=== PATIENT | male | born 1980 | race Caucasian/White ===

== ENCOUNTER 2018-12-08 23:04 | Inpatient (IN) | payer BC, SELFPAY ==
[~2018-12-08] VITALS: Ht 180.3 cm; Wt 73.6 kg
[2018-12-09 00:13] LABS: HEMATOCRIT 45.8 % (42.0-52.0); HEMOGLOBIN 15.9 g/dl (13.5-17.5); MEAN CORPUSCULAR HEMOGLOBIN 33.1 pg (27.0-33.0); MEAN CORPUSCULAR HGB CONC 34.7 g/dl (32.0-36.5); MEAN CORPUSCULAR VOLUME 95.4 fl (80.0-96.0); PLATELET COUNT, AUTOMATED 271 10^3/uL (150-450); WHITE BLOOD COUNT 9.3 10^3/uL (4.0-10.0)
[2018-12-09 00:18] LABS: AMPHETAMINES LEVEL URINE NEGATIVE (NEGATIVE); BARBITURATES URINE NEGATIVE (NEGATIVE); BENZODIAZEPINES URINE NEGATIVE (NEGATIVE); CANNABINOIDS URINE NEGATIVE (NEGATIVE); COCAINE METABOLITE URINE NEGATIVE (NEGATIVE); METHADONE URINE NEGATIVE (NEGATIVE); OPIATES URINE NEGATIVE (NEGATIVE); PHENCYCLIDINE URINE NEGATIVE (NEGATIVE)
[2018-12-09 00:42] LABS: ACETAMINOPHEN LEVEL < 2.0 UG/ML (10.0-30.0); ALBUMIN 4.2 GM/DL (3.2-5.2); ALT/SGPT 24 U/L (12-78); BILIRUBIN,DIRECT 0.3 MG/DL (0.0-0.2); BILIRUBIN,TOTAL 1.5 MG/DL (0.2-1.0); BLOOD UREA NITROGEN 13 MG/DL (7-18); CALCIUM LEVEL 8.7 MG/DL (8.5-10.1); CARBON DIOXIDE LEVEL 25 MEQ/L (21-32); CHLORIDE LEVEL 108 MEQ/L (98-107); CREATININE FOR GFR 1.11 MG/DL (0.70-1.30); ETHYL ALCOHOL (ETHANOL) 0.141 % (0.000-0.010); GLOMERULAR FILTRATION RATE > 60.0 (>60); GLUCOSE, FASTING 99 MG/DL (70-100); POTASSIUM SERUM 4.1 MEQ/L (3.5-5.1); SALICYLATE LEVEL < 1.7 MG/DL (5.0-30.0); SODIUM LEVEL 141 MEQ/L (136-145); THYROID STIMULATING HORMONE 0.674 uIU/ML (0.358-3.740); TOTAL PROTEIN 7.2 GM/DL (6.4-8.2)
--- NOTE | 2018-12-09 05:45 | ECGEPIP ---
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
[2018-12-09] MEDS ORDERED: MOM 30ML SUSPENSION UDC PO PRN (15:45)
[2018-12-09] MEDS ORDERED: MAALOX 30 ML SUSP *UDC PO PRN (15:45)
[2018-12-09] MEDS ORDERED: ACETAMINOPHEN TAB 650MG DOSE (2X325MG) PO PRN (15:45)
[2018-12-09] MEDS ORDERED: traZODone 50 MG TAB PO PRN (15:45)
[2018-12-09 16:27] VITALS: BP 134/64
[2018-12-10 06:59] VITALS: BP 132/63
--- NOTE | 2018-12-10 12:17 | MHHPEPDOC ---
General Date Of Admission: Dec 09, 2018 Legal Status: 9.39 Chief Complaint "I"m not sure what I was thinking." History of Present Illness HISTORY OF THE PRESENT ILLNESS: Patient is a 38 -year-old , male, with no previous psych history who was brought in by police after being found in the [place] with a fake AR15 in hopes electron beam photo mask maker would shoot him (suicide by naval aircrewman tactical helicopter). Pt in the ED stated that he and his had a few weeks ago and she took the children (3) with her causing pt to be depressed. Pt stated that day prior admission and he spent the day together and things had gone well but left him wondering if she still wanted to be with him which made him feel depressed and start drink alcohol (1bottle rum) to self medicate his mood. Pt became increasingly intoxicated and voiced to his that he was having thoughts of suicide by naval aircrewman tactical helicopter causing his to call the electron beam photo mask maker, pt run into the wounds with fake AR15 for suicide by naval aircrewman tactical helicopter or alternate plan take a rope with him and hang him self per pt in ED. Pt in the Ed denied know why he ran into the [place] "I'm not sure what I was thinking... It was just stupidity." Stated in ED he usually drinks alcohol occasionally and prior admission drank 1 bottle rum. Bal 0.141 Psychiatric Review of Systems Depression (2 or more weeks): depressed mood, suicidal thoughts Anika (4 or more days of): engages in risky behavior Psychosis: denies PTSD: denies Anxiety: situational anxiety, stressor related anxiety Anxiety/ 6 months or more of: difficulty concentrating Past Psychiatric History Previous Psychiatric Diagnosis: denies Previous Psychiatric Admissions: denies Suicide Attempts: denies Psychiatric Follow-up: denies Psychiatric medications: denies. Past Medical History Medical Problems denies Head Injury: No Seizures: No Hospitalizations: No Surgeries: No Family Medical/Psychiatric HX Medical Problems noncontributory Psychiatric Disorders: No Addiction: No Suicide Attemps/Completions: No Addiction History nicotine, alcohol (drinks alcohol occasionally and prior admission drank 1 bottle rum. Bal 0.141), other (history of heavy polysubstance abuse ("everything")) Social History Childhood: born and raised in [facility], 2 parent home, good childhood overall Abuse/Trauma:denies. 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 Mental Status Examination General Appearance: well groomed, appears stated age, hospital scubs/clothing Build: average Demeanor: withdrawn Eye Contact: average Activity: average Behavior: cooperative, withdrawn Speech: clear, spontaneous, normal volume, reg/rate,rhythm,volume Mood: depressed Mood "alright" Affect: full, flat, appropriate, congruent Thought Process: logical/linear, depressed, intact Thought Content (Delusions): none reported, denies SI, HI, AVH Thought Content (Other): none reported, appropriate Thought Content (Aggressive): none reported Perception (Hallucinations): none reported Perception (Other): none reported Cognition (Impairment of): none reported Cognition(Intelligence Est.): average Oriented: Awake, Alert, Oriented times three Insight: fair Judgment: Fair Psychosis: Denies Diagnoses Adjustment d/o with depressed mood R/O substance induced mood d/o secondary to alcohol alcohol use d/o A-FIB/CHADSVASC A-FIB History Current/History of A-Fib/PAF?: No Assessment Pt seen and states he and his 2-3wks ago as things having been "up and down" between them making him feel like he was on an "emotional roller coaster" so "I started drinking and I guess I got all stupid and everything and was thinking about killing myself and went out in the [place] passed out and when I woke up and started walking back the electron beam photo mask maker found me." States he had a airsoft myah b/c he plays 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 Denies any history of previous SI and when asked does not think he would have had any thoughts of suicide if he had not been drinking alcohol during this time of emotional stress. States reasons to live are that he has 6 kids (w/4 different women) and his 14y/o son lives with him and 2 kids he has with with with her but he sees them daily. Admits he has a problem with and binge drinks roughly 1 day that he has off (Sunday). Denies alcohol withdrawal symptoms. Denies current SI/HI, hallucinations, delusions. Feels safe here. Initial Treatment Plan 1. Patient was admitted on a 9.39 status. 2. Complete history was obtained. 3. With patients permission, family will be contacted and database will be expanded. 4. Patients medication regimen will be reviewed and changed accordingly. 5. Patient will be provided with protected environment. 6. Patient will be treated with individual, group, and milieu therapies. 7. Patient will receive supportive psych-education. 8. Discharge planning will commence immediately. 9. Outpatient follow-up treatment will be strongly recommended. 10. The initial treatment plan will focus initially on: * Depression. * Risk for suicide. 11. monitor for safety and alcohol withdrawal ESTIMATED LENGTH OF STAY: 3-5 DAYS. TIME SPENT COUNSELING AND COORDINATING INITIAL CARE: 60 minutes. Vital Signs Vital Signs Date Time Temp Pulse Resp B/P (MAP) Pulse Ox O2 Delivery O2 Flow Rate FiO2 12/10/18 06:59 99.8 75 14 132/63 (86) 12/09/18 17:36 100 Room Air Medications No Active Prescriptions or Reported Meds Allergies Coded Allergies: No Known Allergies (Unverified , 12/08/18) OZZY JUAREZ DO Dec 10, 2018 12:17
--- NOTE | 2018-12-10 16:55 | HPEPDOC ---
General Date of Admission Dec 09, 2018 at 15:33 Date of Service: Dec 10, 2018 Attending Physician: CINTIA GERARD DO Chief Complaint The patient is a 38-year-old male admitted with a reason for visit of Depressive Disorder. Source: Patient, RN/MD Exam Limitations: Hard of hearing (bilateral hard of hearing-loss hearing 2nd grade need hearing aides since second grade) Severity: Moderate Associated Symptoms: Other (hard of hearing no other complaints) History of Present Illness Consultation Medical as Patient referred by Inpatient Mental Health Unit: Physical Examination 38 year-old male is seen today in examination room on Inpatient Mental Health Unit for his physical examination by Medicine Hospitalist Nurse Practitioner. He denies shortness of breathe, dizziness, fatigue, heartburn, palpitations, chest pain, nausea, vomiting, diarrhea,numbness and tingling in his hands and feet. He has significant medical history of bilateral hearing deficit () as he lost his hearing and started wearing hearing aids when he was in the 2nd grade but does not like revealing such to others. He is admitted to Inpatient Mental Health Unit for Depression with Suicidal Ideation after he got into another argument with his estranged because she has him in [facility] saying she wants to reconcile to work on their marriage. Then she tells him she does not want to work on their marriage and he feels at a loss because he really wanted to make his marriage work for the sake of their 6 children with the youngest one being 3 (son) and the oldest 16. Home Medications No Active Prescriptions or Reported Meds Allergies Coded Allergies: No Known Allergies (Unverified , 12/08/18) Past Medical History Medical History See HPI Surgical History Denies surgery, history Family History Significant Family History: No pertinent family hx (denies family history reviewed with patient) Social History * Smoker: Denies Drugs: prescription drugs Recent Travel/Sick Contacts: Denies: Recent travel, Recent sick contacts Psychosocial History: Dong SI and HI, Depression, Prior suicide attempt (this admission only) A-FIB/CHADSVASC A-FIB History Current/History of A-Fib/PAF?: No Review of Systems Constitutional: Denies: Chills, Fever, Malaise, Night Sweats, Weakness, Fatigue , Weight Loss, Lethargy, Other Eyes: Denies: Pain, Vision change, Conjunctivae inflammation, Eyelid inflam mation, Redness, Other ENT: Denies: Head Aches, Ear Pain, Dysphagia, Sinus Congestion, Post Nasal Drip, Sore Throat, Epistaxis, Other Symptoms Skin: Denies: Rash, Lesions, Jaundice, Bruising, Itching, Dry, Breakdown, Nail Changes, Other Pulmonary: Denies: Dyspnea, Cough, Pleuritic Chest Pain, Other Symptoms Cardiovascular: Denies: Chest Pain, Palpitations, Orthopnea, Paroxysmal Noc. Dyspnea, Edema, Lt Headedness, Other Symptoms Gastrointestinal: Denies: Nausea, Vomiting, Abdominal Pain, Diarrhea, Constipation, Melena, Hematochezia, Other Symptoms Genitourinary: Denies: Dysuria, Frequency, Incontinence, Hematuria, Retention, Other Symptoms Hematologic: Denies: Bruising, Bleeding Excessively, Petecchia, Purpura, Enlarged Lymph Nodes, Other Hematologic Endocrine: Denies: Polydipsia, Polyphagia, Polyuria, Heat Intolerance, Cold Intolerance, Other Endocrine Sx Musculoskeletal: Denies: Neck Pain, Back Pain, Shoulder Pain, Arm Pain, Hand Pain, Leg Pain, Foot Pain, Joint Pain, Muscle Pain, Spasms, Other Symptoms Neurological: Denies: Weakness, Numbness, Incoordination, Change in speech, Confusion, Seizures, Other Symptoms Psych: Denies: Mood Normal, Anxiety, Depression, Memory Issues, Thoughts of Self Harm, Anger, Thoughts of Harming Other, Other Psych Physical Examination General Exam: Positive: Alert, Cooperative, No Acute Distress Eye Exam: Positive: PERRLA, Conjunctiva & lids normal, Sclera icteric ENT Exam: Positive: Atraumatic, Mucous membr. moist/pink, Pharynx Normal, Tongue Midline Neck Exam: Positive: Supple, +2 carotid pulse wo bruit Chest Exam: Positive: Clear to auscultation, Normal air movement Heart Exam: Positive: Rate Normal, Regular Rhythm, Normal S1, Normal S2 Abdomen Exam: Positive: Normal bowel sounds, Soft Extremity Exam: Positive: Normal pulses Skin Exam: Positive: Nl turgor and temperature Neuro Exam: Positive: Normal Gait, Normal Speech, Strength at 5/5 X4 ext, Cranial Nerves 3-12 NL Psych Exam: Positive: Anxiety, Oriented x 3 Vital Signs Vital Signs Date Time Temp Pulse Resp B/P (MAP) Pulse Ox O2 Delivery O2 Flow Rate FiO2 12/10/18 06:59 99.8 75 14 132/63 (86) 12/09/18 17:36 100 Room Air Problems (1) Depression with suicidal ideation Status: Acute Discussed With: Patient Problem Specific Plan: Monitor Clinically Problem Text: 38 year old male is seen today in examination room on Inpatient Mental Health Unit for his physical examination by Medicine Hospitalist Nurse Practitioner. He denies shortness of breathe, dizziness, fatigue, heartburn, palpitations, chest pain, nausea, vomiting, diarrhea,numbness and tingling in his hands and feet. Depression with Suicidal Ideation-Acute Plan Continue to follow with plan of Inpatient Mental Health Unit Counseling outpatient family to deal with divorce as patient states this is what his decision is. Deaf/Hard of hearing -chronic Wear hearing aid bilateralencourage patient Prognosis: Good- Medically stable; no electrolyte imbalance, glucose normal level DVT Prophylaxis: None, patient low risk for DVT Discharge: Pending inpatient mental health Plan / VTE VTE Prophylaxis Ordered?: No VTE Exclusion Mechanical Proph: Low Risk for VTE VTE Exclusion Pharmacological: At Low Risk for VTE Plan Diet: Continue Current Activity: Continue Current DENAE DIGGS Dec 10, 2018 16:50
[2018-12-10 18:00] VITALS: BP 110/59
[2018-12-11 07:46] VITALS: BP 109/65
--- NOTE | 2018-12-11 09:05 | MHDSPDOC ---
[facility] Discharge Summary Discharge Summary DATE OF ADMISSION: Dec 09, 2018 at 3:33 pm DATE OF DISCHARGE: Dec 11, 2018 DISCHARGE DIAGNOSES: Adjustment d/o with depressed mood R/O substance induced mood d/o secondary to alcohol alcohol use d/o REASON FOR ADMISSION: Patient is a 38 -year-old , male, with no previous psych history who was brought in by police after being found in the [place] with a fake AR15 in hopes jigmaker would shoot him (suicide by copy chaser). Pt in th e ED stated that he and his had a few weeks ago and she took the children (3) with her causing pt to be depressed. Pt stated that day prior admission and he spent the day together and things had gone well but left him wondering if she still wanted to be with him which made him feel depressed and start drink alcohol (1bottle rum) to self medicate his mood. Pt became increasingly intoxicated and voiced to his that he was having thoughts of suicide by copy chaser causing his to call the jigmaker, pt run into the wounds with fake AR15 for suicide by copy chaser or alternate plan take a rope with him and hang him self per pt in ED. Pt in the Ed denied know why he ran into the [place] "I'm not sure what I was thinking... It was just stupidity." Stated in ED he usually drinks alcohol occasionally and prior admission drank 1 bottle rum. 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 Denies any history of previous SI and when asked does not think he would have had any thoughts of suicide if he had not been drinking alcohol during this time of emotional stress. States reasons to live are that he has 6 kids (w/4 different women) and his 14y/o son lives with him and 2 kids he has with with with her but he sees them daily. Admits he has a problem with and binge drinks roughly 1 day that he has off (Sunday). Denies alcohol withdrawal symptoms. Denies current SI/HI, hallucinations, delusions. Feels safe here. CONSULTANTS INVOLVED: none TREATMENT AND PROGRESS ON THE UNIT : Pt was admitted to [facility], seen for psychiatric assessment and monitored for safety. Pt was not started on an antidepressant medication during his stay as he preferred to try outpatient therapy as treatment first. He was provided trazodone 50mg qhs prn insomnia. He attended groups daily during his stay. His symptoms improved with treatment. On day of discharge he denied depression, anxiety, insomnia, SI/HI, hallucinations, delusions, alcohol withdrawal symptoms. He was discharged home with follow-up at [facility]. He felt safe for discharge. DISCHARGE ASSESSMENT: Pt seen and states that his mood is "good" and that he's looking forward to going home today. Denies SI. States he's motivated to get sober for his kids and his . States his and family are supportive. States he slept well last night. He is attending groups and finding them helpful. He denies depression, anxiety, insomnia, SI/HI, hallucinations, delusions, alcohol withdrawal symptoms. Pt feels safe here. MENTAL STATUS EXAMINATION ON DISCHARGE: General Appearance: well groomed, appears stated age, hospital scrubs/clothing Build: average Demeanor: cooperative Eye Contact: average Activity: average Behavior: cooperative Speech: reg/rate,rhythm,volume Mood: euthymic, full range Mood "good" Affect: full, appropriate, congruent Thought Process: logical/linear, depressed, intact Thought Content (Delusions): none reported, denies SI, HI, AVH Thought Content (Other): none reported, appropriate Thought Content (Aggressive): none reported Perception (Hallucinations): none reported Perception (Other): none reported Cognition (Impairment of): none reported Cognition(Intelligence Est.): average Oriented: Awake, Alert, Oriented times three Insight: good Judgment: good Psychosis: Denies MEDICATIONS ON DISCHARGE: none PLAN/FOLLOWUP ARRANGEMENTS: D/c home with follow-up at [facility]. The amount of time spent in the coordination of care for this patient was approximately 30 minutes. Vital Signs/I&Os Vital Signs Date Time Temp Pulse Resp B/P (MAP) Pulse Ox O2 Delivery O2 Flow Rate FiO2 12/11/18 07:46 97.3 73 16 109/65 (80) 12/09/18 17:36 100 Room Air Medications No Active Prescriptions or Reported Meds Allergies Coded Allergies: No Known Allergies (Unverified , 12/08/18) OZZY JUAREZ DO Dec 11, 2018 9:05 am
== END 2018-12-11 10:40 | disposition home or self-care (01) | DRG 754 ==
LOC: M ED 23:04 → M ED INP 12-09 15:33 → M PSY 12-09 17:50
PROVIDERS: ADMIT Psychiatry & Neurology Addiction Medicine; ATTEND Psychiatry & Neurology Psychiatry
DX: F43.21 Adjustment disorder with depressed mood (principal); F10.14 Alcohol abuse with alcohol-induced mood disorder; Z63.5 Disruption of family by separation and divorce; H91.93 Unspecified hearing loss, bilateral